=== PATIENT | male | born 1985 ===

== ENCOUNTER 2023-05-06 18:45 | Emergency (ER) | payer OTHER ==
[2023-05-06] MEDS ORDERED: IPRATROPIUM-ALBUTEROL 3 ML NEB INHALATION STA (19:20)
--- NOTE | 2023-05-06 19:28 | ED ---
Chest Pain HPI - General Chief Complaint: Chest Pain Stated Complaint: chest pain Time Seen by Provider: 05/06/23 19:10 Source: patient, EMS, RN notes reviewed Mode of arrival: EMS Limitations: no limitations - History of Present Illness Initial Comments: This is a 37-year-old male who presents to the emergency department for chest pain. States that this started suddenly around 11 AM. He was laying on his couch when this occurred. States that he felt like someone was sitting on his chest and he had associated shortness of breath. Reports asthma but otherwise has no medical problems or respiratory illnesses. Denies any history of similar symptoms in the past. He has no associated coughing. Denies any personal or family history of cardiac problems. States that his symptoms have since continued, prompting him to call EMS. EMS gave him nitroglycerin, aspirin, and Zofran with no relief in symptoms. Denies any fevers, chills, sore throat, cough, palpitations, abdominal pain, vomiting, diarrhea, back pain, or headaches. MD Complaint: chest pain - Related Data Previous Rx's Medication Instructions Recorded Albuterol Sulfate [Albuterol 1 puff PO Q4-6H PRN #8.5 gm 05/06/23 Sulfate Hfa] Ipratropium-Albuterol Nebulize 3 ml INHALATION Q4-6H PRN #90 ml 05/06/23 [Duoneb 0.5 mg-3 mg/3 ml Soln] predniSONE 50 mg PO DAILY 5 Days #5 tab 05/06/23 Allergies Allergy/AdvReac Type Severity Reaction Status Date / Time No Known Allergies Allergy Verified 05/06/23 21:51 Review of Systems ROS Statement: Those systems with pertinent positive or pertinent negative responses have been documented in the HPI. ROS Other: All systems not noted in ROS Statement are negative. Past Medical History Past Medical History: Asthma History of Any Multi-Drug Resistant Organisms: None Reported Past Surgical History: No Surgical Hx Reported Smoking Status: Never smoker Past Alcohol Use History: Occasional Past Drug Use History: None Reported General Exam Limitations: no limitations General appearance: alert, in no apparent distress Head exam: Present: atraumatic, normocephalic, normal inspection Respiratory exam: Present: decreased breath sounds, prolonged expiratory. Absent: respiratory distress, wheezes, rales, rhonchi, stridor Cardiovascular Exam: Present: regular rate, normal rhythm, normal heart sounds. Absent: systolic murmur, diastolic murmur, rubs, gallop, clicks Neurological exam: Present: alert, oriented X3, CN II-XII intact Psychiatric exam: Present: normal affect, normal mood Skin exam: Present: warm, dry, intact, normal color. Absent: rash Course Vital Signs 05/06/23 05/06/23 05/06/23 18:48 19:40 19:50 Temperature 99 F Pulse Rate 92 102 H 104 H Respiratory 18 Rate Blood Pressure 127/89 O2 Sat by Pulse 94 L Oximetry 05/06/23 05/06/23 05/06/23 20:00 21:00 22:10 Temperature 98.7 F Pulse Rate 111 H 101 H 98 Respiratory 18 17 18 Rate Blood Pressure 150/85 151/76 158/91 O2 Sat by Pulse 95 95 96 Oximetry Chest Pain MDM - MDM This is a 37-year-old male who presents to the emergency department for chest pain and shortness of breath. Was pt. sent in by a medical professional or institution? @ -No Did you speak to anyone other than the patient for history? @ -No Did you review nursing and triage notes? @ -Yes, and I agree, it is accurate with regards to the patient's symptoms. Were old charts reviewed? @ -No Differential Diagnosis? @ -Differential Chest Pain: Stable Angina, Unstable Angina, STEMI, NSTEMI Aortic Dissection, Pneumothorax, Musculoskeletal, Esophageal Spasm GERD, Cholecystitis, Pancreatitis, Zoster, this is not meant to be an all-inclusive list. EKG interpreted by me (3pts min.)? @ -EKG interpreted by me demonstrating the following: Sinus rhythm. Ventricular rate 93 beats per minute, WI interval 161 ms, QRS duration 114 ms, QTC 389 ms. X-rays interpreted by me (1pt min.)? @ -Chest x-ray obtained, my interpretation identifies no localized consolidations or infiltrates. CT interpreted by me (1pt min.)? @ -CT scan of the chest obtained. My interpretation identifies no localized consolidations or infiltrates. U/S interpreted by me (1pt. min.)? @ -Not obtained What testing was considered but not performed? (CT, X-rays, U/S, labs)? Why? @ -None What meds were considered but not given? Why? @ -None Did you discuss the management of the patient with other professionals? @ -No Did you reconcile home meds? @ -No Was smoking cessation discussed for >3mins.? @ -No Was critical care preformed (if so, how long)? @ -No Were there social determinants of health that impacted care today? How? (Homelessness, low income, unemployed, alcoholism, drug addiction, transportation, low edu. Level, literacy, decrease access to med. care, prison, rehab)? @ -No Was there de-escalation of care discussed even if they declined? (Discuss DNR or withdrawal of care, Hospice)? @ -No What co-morbidities impacted this encounter? (DM, HTN, Smoking, COPD, CAD, Cancer, CVA, Hep., AIDS, mental health diagnosis, sleep apnea, morbid obesity)? @ -Asthma Was patient admitted / discharged? @ -Discharged. Lab work obtained revealing leukocytosis and no other acute findings, including a negative d-dimer and negative troponin. Chest x-ray reveals no acute process. Covid, influenza, and RSV testing were negative. Because the cause of the leukocytosis was not entirely clear, and in light of his symptoms, computed tomography scan of the chest was subsequently obtained. This revealed no acute process. He was given a DuoNeb breathing treatment, with significant relief in symptoms. His symptoms may be related to an asthma exacerbation. Prescription for albuterol inhaler, 5 day course of prednisone, and DuoNeb breathing treatments provided with dosing instructions reviewed. Otherwise advised close follow-up with his primary care provider. Undiagnosed new problem with uncertain prognosis? @ -None Drug Therapy requiring intensive monitoring for toxicity (Heparin, Nitro, Insulin, Cardizem)? @ -None Were any procedures done? @ -None Diagnosis/symptom? @ -Asthma exacerbation Acute, or Chronic, or Acute on Chronic? @ -Acute on chronic Uncomplicated (without systemic symptoms) or Complicated (systemic symptoms)? @ -Uncomplicated Side effects of treatment? @ -None Exacerbation, Progression, or Severe Exacerbation] @ -Exacerbation Poses a threat to life or bodily function? @ -Not at this time Return precautions reviewed in depth, the patient is instructed to return to the emergency department with any new, worsening, or concerning symptoms. Patient verbalized understanding. This case was discussed in detail with the attending ED physician, Dr. Lee. Presentation, findings, and treatment plan discussed in detail as well. Disposition Clinical Impression: Asthma exacerbation, Shortness of breath Disposition: HOME SELF-CARE Instructions (If sedation given, give patient instructions): Asthma (ED) Additional Instructions: Return to the emergency department with any new, worsening, or concerning sympto ms. Take the prednisone daily for 5 days. You can use the albuterol inhaler or DuoNeb breathing treatments every 4-6 hours as needed for shortness of breath. Follow up with your primary care provider in 1-2 days. Prescriptions: Albuterol Sulfate [Albuterol Sulfate Hfa] 1 puff PO Q4-6H PRN #8.5 gm PRN Reason: Shortness Of Breath Ipratropium-Albuterol Nebulize [Duoneb 0.5 mg-3 mg/3 ml Soln] 3 ml INHALATION Q4-6H PRN #90 ml PRN Reason: Shortness Of Breath predniSONE 50 mg PO DAILY 5 Days #5 tab Is patient prescribed a controlled substance at d/c from ED?: No Referrals: Myles Fregoso MD [Primary Care Provider] - 1-2 days
[2023-05-06 19:44] LABS: Basophils % (A) 0 %; Eosinophils % (A) 0 %; HCT 46.4 % (39.0-53.0); HGB 15.4 gm/dL (13.0-17.5); Lymphocytes # (A) 1.8 k/uL (1.0-4.8); Lymphocytes % (A) 11 %; MCH 27.5 pg (25.0-35.0); MCHC 33.2 g/dL (31.0-37.0); MCV 82.7 fL (80.0-100.0); Mean Platelet Volume 8.2; Monocytes % (A) 6 %; Neutrophils # (A) 14.2 k/uL (1.3-7.7); Neutrophils % (A) 83 %; Platelet Count 287 k/uL (150-450); RDW 13.5 % (11.5-15.5); WBC 17.2 k/uL (3.8-10.6)
[2023-05-06 20:08] LABS: INR 0.9 (<1.2); Prothrombin Time 9.7 sec (9.0-12.0)
[2023-05-06 20:12] LABS: Partial Thromboplastin Time 21.3 sec (22.0-30.0)
[2023-05-06 20:17] LABS: ALT 42 U/L (4-49); AST 37 U/L (17-59); African American GFR (CKD) >90 (>60 ml/min/1.73 sqM); Albumin 4.6 g/dL (3.5-5.0); Alkaline Phosphatase 108 U/L (38-126); Anion Gap 11 mmol/L; Blood Urea Nitrogen 15 mg/dL (9-20); Calcium 10.1 mg/dL (8.4-10.2); Carbon Dioxide 24 mmol/L (22-30); Chloride 103 mmol/L (98-107); Glucose 127 mg/dL (74-99); Non-African American GFR(CKD) >90 (>60 ml/min/1.73 sqM); Potassium 4.2 mmol/L (3.5-5.1); Sodium 138 mmol/L (137-145); Total Bilirubin 0.5 mg/dL (0.2-1.3); Total Protein 7.9 g/dL (6.3-8.2)
--- NOTE | 2023-05-06 20:34 | XR ---
EXAMINATION TYPE: XR chest 2V DATE OF EXAM: 05/06/2023 7:38 PM COMPARISON: None TECHNIQUE: XR chest 2V Frontal and lateral views of the chest. CLINICAL INDICATION:Male, 37 years old with history of Chest Pain; FINDINGS: Lungs/Pleura: There is no evidence of pleural effusion, focal consolidation, or pneumothorax. Pulmonary vascularity: Unremarkable. Heart/mediastinum: Cardiomediastinal silhouette is unremarkable. Musculoskeletal: No acute osseous pathology. IMPRESSION: No acute cardiopulmonary disease/process.
[2023-05-06] MEDS ORDERED: RX INFO: IV CONTRAST WAS GIVEN 1 EACH MISC MISCELLANE PRN (20:36)
--- NOTE | 2023-05-06 21:26 | CT ---
EXAMINATION TYPE: CT chest w con CT DLP: 629 mGycm, Automated exposure control for dose reduction was used. DATE OF EXAM: 05/06/2023 8:55 PM COMPARISON: Chest radiograph from same day. CLINICAL INDICATION:Male, 37 years old with history of Chest pain, NINA; PHH, chest heaviness and sob TECHNIQUE: Multiple axial images were obtained through the chest. Sagittal and coronal reformats were created for review. Contrast used:100 mL of Isovue 300 with IV Contrast (None if empty) Oral contrast used: (None if empty) FINDINGS: LUNGS/ PLEURA: No focal consolidation, pneumothorax or pleural effusion. AIRWAY: Patent and unremarkable. HEART: Size within normal limits. MEDIASTINUM: No gross evidence of adenopathy. VASCULATURE: No aortic aneurysm. MUSCULOSKELETAL: No acute osseous abnormalities SOFT TISSUES/LYMPH NODES: Unremarkable. LOWER NECK: No significant findings. UPPER ABDOMEN: No significant findings. IMPRESSION: No evidence for central pulmonary embolus. No evidence for focal consolidation or acute t horacic process.
[2023-05-06] MEDS ORDERED: methylPREDNISolone SOD SUCCI 125 MG/2 ML VIAL IV STA (21:48)
[2023-05-06 22:20] VITALS: BP 158/91; PULSE 98; RESP 18; TEMP 98.7
== END 2023-05-06 22:10 | disposition home or self-care (01) ==
LOC: EC 18:45
DX: J45.901 Unspecified asthma with (acute) exacerbation (principal); Z20.822 Contact with and (suspected) exposure to COVID-19
CPT/HCPCS: 36415; 94640; 93005; 85379; 80053; 83735; 84484; 85025; 85610; 85730; 87636; 71046; 71260; 99285; 96374; J2930

== ENCOUNTER → 2023-08-01 | Outpatient (CLI) | payer OTHER ==
[2023-08-02 03:10] LABS: HCT 47.4 % (39.6-50.0); HGB 15.1 g/dL (13.0-17.0); MCHC 31.9 g/dL (32.0-37.0); MCV 84.6 FL (80.0-97.0); NRBC Per 100 WBC 0 X 10*3/uL (0.00-0.01); Platelet Count 297 X 10*3/uL (140-440); RDW 13.2 % (11.5-14.5); WBC 8.31 X 10*3/uL (4.50-10.00)
[2023-08-02 03:20] LABS: ALT 40 U/L (10-49); AST 25 U/L (14-35); Albumin 4.6 g/dL (3.8-4.9); Albumin/Globulin Ratio 1.84 Ratio (1.60-3.17); Alkaline Phosphatase 108 U/L (41-126); BUN/Creat Ratio 14.89 Ratio (12.00-20.00); Blood Urea Nitrogen 13.4 mg/dL (9.0-27.0); Calcium 9.7 mg/dL (8.7-10.3); Carbon Dioxide 25.4 mmol/L (21.6-31.8); Chloride 103 mmol/L (96-109); Globulin 2.5 g/dL (1.6-3.3); Glucose 98 mg/dL (70-110); Potassium 3.9 mmol/L (3.5-5.5); Prostate Specific Antigen 0.47 ng/mL (0.000-2.500); Sodium 141 mmol/L (135-145); Total Bilirubin 0.2 mg/dL (0.3-1.2); Total Protein 7.1 g/dL (6.2-8.2)
[2023-08-02 03:59] LABS: Follicle Stimulating Hormone 4.1 mIU/mL; Luteinizing Hormone 6.1 mIU/mL
== END | disposition home or self-care (01) ==
LOC: LABWHC1 16:27
PROVIDERS: ATTEND Internal Medicine Endocrinology, Diabetes & Metabolism
DX: E29.1 Testicular hypofunction (principal); R53.83 Other fatigue
CPT/HCPCS: 36415; 80053; 82024; 82533; 82607; 83001; 83002; 84146; 84153; 84403; 84443; 84481; 85027